=== PATIENT | female | born 1985 | race Caucasian/White ===

== ENCOUNTER 2018-03-19 17:08 | Observation (INO) | payer BC, OTHER ==
[2018-03-19] MEDS ORDERED: TDAP ADULT 0.5 ML INJ (BOOSTRIX) IM ONE (17:29)
[2018-03-19] MEDS ORDERED: IOPAMIDOL (ISOVUE-300) 100 ML BTL ONE (17:30)
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
[2018-03-19 19:17] LABS: PLATELET COUNT 335 10^3/uL (150-400)
[2018-03-19] MEDS ORDERED: ONDANSETRON DISINTEGRATING 4 MG TAB PO PRN (19:34)
[2018-03-19] MEDS ORDERED: ONDANSETRON 4 MG/2 ML VIAL IVP PRN (19:38)
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
[2018-03-19] MEDS: IBUPROFEN 600 MG TAB PO SCH (21:55)
[2018-03-19] MEDS: GABAPENTIN 100 MG CAP PO SCH (21:55)
[2018-03-20] MEDS: IBUPROFEN 600 MG TAB PO SCH ×2 (05:29→14:12)
[2018-03-20 07:20] VITALS: BP 103/62
--- NOTE | 2018-03-20 07:51 | SOAPPROG ---
SOAP Progress Note Assessment/Plan: Assessment: INR noted to be 1.8 this morning. In light of this, I will have a discussion with the hospitalist about the possible utility of FFP. This would allow for surgical fixation sooner if the patient is medically capable of taking the medication. Marce Objective: Vital Signs Temp Pulse Resp BP Pulse Ox 36.6 C 71 16 103/62 95 03/20/18 07:19 03/20/18 07:19 03/20/18 07:19 03/20/18 07:19 03/20/18 07:19 Laboratory Results 03/19/18 19:02 03/19/18 19:02 03/19/18 03/20/18 03/21/18 05:59 05:59 05:59 Intake Total 500 Balance 500 ICD10 Worksheet Patient Problems: Problems Problem Status Onset Abrasion, left knee, initial encounter Acute Closed fracture of transverse process of thoracic vertebra Acute Closed left scapular fracture Acute Fracture of toe of left foot Acute Head injury due to trauma Acute Hemothorax with pneumothorax, traumatic Acute Laceration of left foot Acute Laceration of skin of scalp Acute Left pulmonary contusion Acute Multiple fractures of ribs, left side, initial encounter for closed fracture Acute
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
[2018-03-20] MEDS: HYDROCODONE/APAP 5/325 TAB PO PRN ×3 (08:43→17:04)
[2018-03-20] MEDS: GABAPENTIN 100 MG CAP PO SCH ×2 (08:43→17:04)
[2018-03-20] MEDS ORDERED: SPIRONOLACTONE 100 MG TAB PO SCH (09:00)
--- NOTE | 2018-03-20 14:07 | SOAPPROG ---
SOAP Progress Note Assessment/Plan: Assessment: Plan: Subjective: hd 2 left rib fx, scapula fx, r little toe fx vss, af lungs clear. cxr ok no pneumo seen pending pt ot eval, it audit manager eval. discharge likely tomorrow, today if improves. Objective: Vital Signs Temp Pulse Resp BP Pulse Ox 36.6 C 71 16 103/62 95 03/20/18 07:19 03/20/18 07:19 03/20/18 07:19 03/20/18 07:19 03/20/18 07:19 Laboratory Results 03/19/18 19:02 03/19/18 19:02 03/19/18 03/20/18 03/21/18 05:59 05:59 05:59 Intake Total 500 Balance 500 ICD10 Worksheet Patient Problems: Problems Problem Status Onset Abrasion, left knee, initial encounter Acute Closed fracture of transverse process of thoracic vertebra Acute Closed left scapular fracture Acute Fracture of toe of left foot Acute Head injury due to trauma Acute Hemothorax with pneumothorax, traumatic Acute Laceration of left foot Acute Laceration of skin of scalp Acute Left pulmonary contusion Acute Multiple fractures of ribs, left side, initial encounter for closed fracture Acute
--- NOTE | 2018-03-20 14:08 | TRAUMAPNT ---
Trauma Tertiary Progress Note Assessment/Plan: Assessment: Plan: Subjective: tertiary survey no new injuries identified. Objective: Vital Signs Temp Pulse Resp BP Pulse Ox 36.6 C 71 16 103/62 95 03/20/18 07:19 03/20/18 07:19 03/20/18 07:19 03/20/18 07:19 03/20/18 07:19 Laboratory Results 03/19/18 19:02 03/19/18 19:02 03/19/18 03/20/18 03/21/18 05:59 05:59 05:59 Intake Total 500 Balance 500
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
--- NOTE | 2018-03-20 17:49 | GPROG ---
The patient doing well this morning. Overall, pain is a little better controlled. There has been really no change in interval examination or complaints. ASSESSMENT AND PLAN: Again, from my perspective, this is a stable injury, and I will see the patient back in my clinic. I also reinforced this with the patient. /[id number]/MODL MTDD
== END 2018-03-20 17:15 | disposition home or self-care (01) ==
LOC: EDUNIT# → INTOOBSV 18:34 → F3N 20:33
PROVIDERS: ADMIT Surgery; ATTEND Surgery
PROC: 0HQ0XZZ Repair Scalp Skin, External Approach (ICD-10-PCS; principal; 2018-03-19)
PROC: 0HQMXZZ Repair Right Foot Skin, External Approach (ICD-10-PCS; principal; 2018-03-19)
DX: S27.0XXA Traumatic pneumothorax, initial encounter (principal); S22.42XA Multiple fractures of ribs, left side, initial encounter for closed fracture; S42.112A Displaced fracture of body of scapula, left shoulder, initial encounter for closed fracture; S92.534A Nondisplaced fracture of distal phalanx of right lesser toe(s), initial encounter for closed fracture; S01.01XA Laceration without foreign body of scalp, initial encounter; S06.0X0A Concussion without loss of consciousness, initial encounter; S91.311A Laceration without foreign body, right foot, initial encounter; V13.4XXA Pedal cycle driver injured in collision with car, pick-up truck or van in traffic accident, initial encounter; R40.2412 Glasgow coma scale score 13-15, at arrival to emergency department; Y93.55 Activity, bike riding; Y92.413 State road as the place of occurrence of the external cause
CPT/HCPCS: 12002; 70450; 71045; 71260; 72125; 72129; 72132; 73030; 73630; 74177; 90471; 92523; 96374; 97162; 97165; 97535; 99285; G0378; 82435-PO; 82565-PO; 82947-PO; 84132-PO; 84295-PO; 84520-PO; 85014-PO; J2270; Q9967